=== PATIENT | female | born 1995 | race Two or more races ===

== ENCOUNTER 2021-02-17 15:45 | Emergency (ER) | payer OTHER ==
[~2021-02-17] VITALS: Ht 162.6 cm; Wt 79.5 kg
[2021-02-17 18:00] VITALS: BP 128/72
== END 2021-02-17 18:40 | disposition home or self-care (01) ==
LOC: EMS 15:45
DX: L02.214 Cutaneous abscess of groin (principal); F17.210 Nicotine dependence, cigarettes, uncomplicated
CPT/HCPCS: 99283; Z7502

== ENCOUNTER 2021-02-24 13:04 | Emergency (ER) | payer OTHER ==
[~2021-02-24] VITALS: Ht 162.6 cm; Wt 77.3 kg
[2021-02-24 13:12] VITALS: BP 126/68
== END 2021-02-24 14:50 | disposition home or self-care (01) ==
LOC: EMS 13:04
DX: F41.9 Anxiety disorder, unspecified (principal); F17.210 Nicotine dependence, cigarettes, uncomplicated; Z76.0 Encounter for issue of repeat prescription
CPT/HCPCS: 99281; Z7502

== ENCOUNTER 2021-02-28 13:37 | Emergency (ER) | payer OTHER ==
[~2021-02-28] VITALS: Ht 172.7 cm; Wt 75.0 kg
[2021-02-28 15:13] VITALS: BP 135/75
== END 2021-02-28 17:27 | disposition left against medical advice (07) ==
LOC: EMS 13:56
DX: R51.9 Headache, unspecified (principal); Z53.21 Procedure and treatment not carried out due to patient leaving prior to being seen by health care provider